=== PATIENT | female | born 1975 ===

== ENCOUNTER 2023-11-30 08:14 | Outpatient (CLI) | payer OTHER, SELFPAY ==
--- NOTE | 2023-11-30 08:15 | MR_ITS ---
[address] [address] Phone:?[phone] Fax:?[phone] Referring Physician Information: Zhou James M.D. [address] [place] [id number] Phone:?[phone] Fax:?[phone] Patient:Iveth Matamoros D.O.B:?1975 Sex:?Female Phone:? [facility] MRN:?[id number] Exam Date:?11/30/2023 EXAM: MRI of the RIGHT KNEE, without contrast CLINICAL: Right knee injury status post fall down stairs. COMPARISONS: X-rays dated 11/19/2023. TECHNICAL: Multiplanar multisequence MRI of the right knee was obtained. SEDATION: None. CONTRAST: None. FINDINGS: Ligaments: ACL: Intact and unremarkable. PCL: Intact and unremarkable. MCL: Intact and unremarkable. LCL: Intact and unremarkable. Posterolateral corner: Popliteus, biceps femoris, iliotibial band, and the popliteofibular ligament appear intact. Posteromedial corner: Semimembranosus, pes anserine tendons and posterior oblique ligament appear intact. Mild fluid within the semimembranosus bursa. Extensor mechanism: Patellar tendon: Intact, without tendinopathy. Quadriceps tendon: Intact, without tendinopathy. Retinacula: Medial and lateral retinacula are intact. Fat pads: There is increased edema within superolateral Hoffa's fat. Patellofemoral joint: Patella: No significant chondromalacia. Trochlea: No significant chondromalacia. Medial compartment: Medial meniscus: Suspect mild faint horizontal tearing involving the free edge of the body segment on coronal series 8 images 15-16. Remainder of the meniscus appears intact. Medial cartilage: Small segment of grade 2 chondral loss involving the weightbearing medial femoral condyle on coronal series 8 image 17-18. Medial tibial plateau cartilage is maintained. Lateral compartment: Lateral meniscus: There is complex tearing throughout the body segment extending into the anterior horn and anterior root with tearing also seen to extend into the posterior horn. Lateral cartilage: No significant chondromalacia. Knee joint: Effusion: Moderate sized right knee effusion. Intra-articular bodies:?No convincing bodies identified. Popliteal cyst: None. Bones: No suspicious bone marrow signal alteration or fracture line. IMPRESSION: 1. Tearing of the lateral meniscus as above. 2. Suspect mild faint tearing involving the body segment medial meniscus. 3. Increased edema within superolateral Hoffa's fat which can be seen in patients with impingement and patellofemoral tracking. 4. Mild semimembranosus bursitis. 5. Small segment of grade 2 chondral loss involving the weightbearing medial femoral condyle. Remaining cartilage of the knee otherwise appears preserved. 6. Moderate joint effusion. JCZ Electronically signed on 11/30/2023 1:57:00 PM by Demetrius Georges D.O.
== END 2023-11-30 08:15 | disposition home or self-care (01) ==
PROVIDERS: Visit Provider Orthopaedic Surgery
DX: M25.561 Pain in right knee (principal); S83.281A Other tear of lateral meniscus, current injury, right knee, initial encounter; M70.51 Other bursitis of knee, right knee; M25.461 Effusion, right knee; S83.519A Sprain of anterior cruciate ligament of unspecified knee, initial encounter
CPT/HCPCS: 73721; T1013

== ENCOUNTER 2024-02-22 11:00 | Outpatient (RCR) | payer OTHER, SELFPAY | END 2024-02-23 09:13 | disposition home or self-care (01) | PROVIDERS: Visit Provider Orthopaedic Surgery | DX: S83.206A Unspecified tear of unspecified meniscus, current injury, right knee, initial encounter (principal); Z51.89 Encounter for other specified aftercare | CPT/HCPCS: 97110; 97112; 97161; 97162; 97530; 97535; T1013 ==